=== PATIENT | female | born 1970 | race Caucasian/White ===

== ENCOUNTER 2025-03-27 10:38 | Emergency (ER) | payer MEDICAID ==
[~2025-03-27] VITALS: Ht 170.2 cm; Wt 51.0 kg
[2025-03-27 10:43] VITALS: O2SAT 100
[2025-03-27] MEDS: ONDANSETRON HCL 4MG TABLET PO ONE (11:24)
[2025-03-27] MEDS: ACETAMINOPHEN 325MG TABLET PO ONE (11:24)
[2025-03-27] MEDS: TETANUS, DIPHTHERIA, PERTUSSIS VAC/PF 0.5ML (>10YR OLD) IM ONE (12:20)
[2025-03-27 12:29] LABS: BASOPHILS % 0.4 % (0.0-2.0); EOSINOPHILS % 1.1 % (0.0-5.0); HEMATOCRIT. 41.5 % (36.0-48.0); HEMOGLOBIN. 13.7 g/dL (12.0-16.0); LYMPHOCYTES % 16.6 % (20.0-50.0); MEAN PLATELET VOLUME 10.0 fl (7.4-10.4); MONOCYTES % 4.6 % (2.0-8.0); NEUTROPHILS % 77.3 % (40.0-76.0); PLATELET 205 x1000/uL (130-400); RED BLOOD CELL COUNT 4.92 mill/uL (4.2-5.4); RED CELL DISTRIBUTION WIDTH 12.9 % (11.6-14.6)
[2025-03-27 12:44] LABS: CREATININE 0.6 mg/dL (0.6-1.0); UREA NITROGEN BLOOD 13 mg/dL (9-23)
[2025-03-27 12:46] LABS: ASPARTATE AMINOTRANSFERASE 14 IU/L (<34)
[2025-03-27 12:47] LABS: BILIRUBIN TOTAL 0.7 mg/dL (0.1-1.0); PROTEIN TOTAL 7.6 g/dL (6.0-8.3)
[2025-03-27 12:50] LABS: HCG SCREEN NEGATIVE
[2025-03-27 13:56] VITALS: BP 130/71; PULSE 74; RESP 15; TEMP 36.8; O2SAT 100
== END 2025-03-27 14:24 | disposition home or self-care (01) ==
LOC: ER 10:38
DX: S62.001A Unspecified fracture of navicular [scaphoid] bone of right wrist, initial encounter for closed fracture (principal); S02.2XXA Fracture of nasal bones, initial encounter for closed fracture; M25.511 Pain in right shoulder; M25.562 Pain in left knee; Z79.4 Long term (current) use of insulin; E11.65 Type 2 diabetes mellitus with hyperglycemia; W01.0XXA Fall on same level from slipping, tripping and stumbling without subsequent striking against object, initial encounter; Y93.01 Activity, walking, marching and hiking; Y92.480 Sidewalk as the place of occurrence of the external cause; Y99.8 Other external cause status
CPT/HCPCS: 99285; 70450; 80053; 82010; 82962; 84703; 85025; 36415; 73502; 73030; 73110; 73562; 70486; 72125; 90715; 29125; 90471; Q0162